=== PATIENT | female | born 1955 | race Caucasian/White ===

== ENCOUNTER 2016-09-23 21:35 | Inpatient (IN) | payer OTHER ==
[~2016-09-23] VITALS: Ht 170.2 cm; Wt 96.4 kg
[~2016-09-23 21:35] MED LIST: CRANBERRY TABL1 EACH PO; DETROL LA2 MG PO; DEXILANT30 MG PO; DEXILANT60 MG PO; FLONASE ALLERG9.9 ML BOTH NARES; LEVO-T137 MCG PO; LEVOTHROID,S0.025 MG PO; LIDOCAINE700 MG TD; MULTIPLE VITAM1 EACH PO; MYRBETRIQ50 MG PO; PEPCID20 MG PO; PREMARIN VAGI42.5 GM VG; PREMARIN0.3 MG PO; TOPAMAX50 MG PO; TRAMADOL HCL50 MG PO; VITAMIN D-32000 UNI2 PO; ZOLOFT100 MG PO
[2016-09-23 22:44] LABS: HEMATOCRIT 36.5 % (36.0-46.0); MCH 31.7 PG (29.0-34.0); MCHC 33.7 G/DL (30.0-36.0); MCV 94.1 FL (83-99); MEAN PLAT.VOLUME 9.3 uM^3 (9.5-12.4); PLATELET COUNT 198 K/uL (156-360); RBC DIS.WIDTH-CV 13.3 % (11.8-14.6); RBC DIS.WIDTH-SD 44.1 % (39-53); RED BLOOD COUNT 3.88 M/uL (3.80-5.20); WHITE BLOOD COUNT 8.1 K/uL (4.1-10.2)
[2016-09-23 22:54] LABS: CHLORIDE 107 mEq/L (99-109); POTASSIUM 3.7 mEq/L (3.7-5.4); SODIUM 140 mEq/L (136-147)
[2016-09-23 22:55] LABS: GLUCOSE 166 mg/dL (70-99)
[2016-09-23 22:57] LABS: ANION GAP 9 MEQ/L (2-14)
[2016-09-23 22:59] LABS: GFR ESTIMATE (CALCULATED) > 59 mL/min/
[2016-09-23 23:00] LABS: UREA NITROGEN (BUN) 18 mg/dL (9-23)
[2016-09-23 23:03] LABS: PROTHROMBIN TIME 10.2 (9.2-11.2); PTT 22.9 (25-32)
[2016-09-24 03:21] VITALS: BP 139/73
[2016-09-24 07:35] VITALS: BP 119/65
[2016-09-24 13:57] LABS: BILIRUBIN NEGATIVE; BLOOD NEGATIVE; COLOR YELLOW ((YELLOW)); GLUCOSE (STRIP) NEGATIVE; KETONES NEGATIVE; LEUKOCYTES NEGATIVE; NITRITE NEGATIVE; PROTEIN (STRIP) NEGATIVE; SPECIFIC GRAVITY 1.018 (1.000-1.030); UROBILINOGEN 0.2 MG/DL (0.2-1.0)
[2016-09-24 14:02] LABS: ADD MIUA? NO; UCUL ADDED? NO
[2016-09-24 15:51] VITALS: BP 135/61
[2016-09-24 23:54] VITALS: BP 121/65
[2016-09-25 07:30] VITALS: BP 124/58
[2016-09-25 08:55] LABS: HEMATOCRIT 32.3 % (36.0-46.0); MCH 31.3 PG (29.0-34.0); MCHC 32.5 G/DL (30.0-36.0); MCV 96.1 FL (83-99); PLATELET COUNT 164 K/uL (156-360); RBC DIS.WIDTH-CV 13.8 % (11.8-14.6); RBC DIS.WIDTH-SD 48.4 % (39-53); RED BLOOD COUNT 3.36 M/uL (3.80-5.20); WHITE BLOOD COUNT 5.7 K/uL (4.1-10.2)
[2016-09-25 09:13] LABS: ALKALINE PHOSPHATASE 70 IU/L (3-129); ANION GAP 8 MEQ/L (2-14); CHLORIDE 105 MEQ/L (99-109); GFR ESTIMATE (CALCULATED) > 59 mL/min/; POTASSIUM 3.7 MEQ/L (3.7-5.4); SAMPLE HEMOLYSIS CHECK 0; SAMPLE ICTERIC CHECK 0; SAMPLE LIPEMIA CHECK 0; SODIUM 140 MEQ/L (136-147); TOTAL BILIRUBIN 0.5 MG/DL (0.0-1.0); UREA NITROGEN (BUN) 8 mg/dL (9-23)
[2016-09-25 09:14] LABS: GLUCOSE 102 mg/dL (70-99)
[2016-09-25 19:39] VITALS: BP 134/63
[2016-09-26] VITALS (7 sets, daily range): BP systolic 122–140; BP diastolic 58–78
[2016-09-27 00:21] VITALS: BP 140/84
[2016-09-27 04:39] VITALS: BP 113/63
[2016-09-27 07:28] VITALS: BP 121/62
[2016-09-27] MEDS ORDERED: PERCOCET 5/31 TABLET PO (09:51)
[2016-09-27] MEDS ORDERED: FLEXERIL10 MG PO (09:51)
[2016-09-27 12:14] VITALS: BP 123/65
[2016-09-30] MEDS ORDERED: NUMBONEX30 GM TP (15:32)
[2016-09-30] MEDS ORDERED: FLEXERIL10 MG PO (15:33)
== END 2016-09-27 17:36 | disposition home or self-care (01) | DRG 200 ==
LOC: EME 21:35 → EDOF 09-24 00:05 → 3EAST 09-24 00:05
PROVIDERS: Emergency Medicine; Surgery
PROC: 0W9B30Z Drainage of Left Pleural Cavity with Drainage Device, Percutaneous Approach (ICD-10-PCS; principal; 2016-09-24)
DX: S27.0XXA Traumatic pneumothorax, initial encounter (principal); S22.42XA Multiple fractures of ribs, left side, initial encounter for closed fracture; S80.212A Abrasion, left knee, initial encounter; S52.023A Displaced fracture of olecranon process without intraarticular extension of unspecified ulna, initial encounter for closed fracture
CPT/HCPCS: 71010; 71250; 73110; 80048; 80053; 81003; 85027; 85610; 85730; 86850; 86900; 86901; 99281; 99285; J1170; J1644; J2270; J2405; J7030; J7120

== ENCOUNTER 2016-10-04 13:21 | Day surgery (SDC) | payer OTHER ==
[~2016-10-04] VITALS: Ht 170.2 cm; Wt 95.7 kg
[~2016-10-04 13:21] MED LIST changes: +FLEXERIL10 MG PO; +NUMBONEX30 GM TP; +PERCOCET 5/31 TABLET PO
[2016-10-04 14:09] VITALS: BP 125/69
[2016-10-04 21:30] VITALS: BP 157/67
[2016-10-04 22:30] VITALS: BP 126/64
== END 2016-10-04 22:50 | disposition home or self-care (01) ==
LOC: SDC 13:21
PROC: 0PSL04Z Reposition Left Ulna with Internal Fixation Device, Open Approach (ICD-10-PCS; principal; 2016-10-04)
DX: S52.022A Displaced fracture of olecranon process without intraarticular extension of left ulna, initial encounter for closed fracture (principal); Y92.9 Unspecified place or not applicable; E05.90 Thyrotoxicosis, unspecified without thyrotoxic crisis or storm; R12 Heartburn; E78.5 Hyperlipidemia, unspecified; R01.1 Cardiac murmur, unspecified; R73.09 Other abnormal glucose; M19.90 Unspecified osteoarthritis, unspecified site
CPT/HCPCS: 71010; 73070; 73600; 76000; C1766; J0131; J0330; J1100; J1170; J2250; J2405; J3010; S0020